=== PATIENT | female | born 1930 | race Caucasian/White ===

== ENCOUNTER 2018-02-12 11:12 | Emergency (ER) | payer MEDICARE, OTHER ==
--- NOTE | 2018-02-12 11:56 | EDM.PDOC ---
ED HPI GENERAL MEDICAL PROBLEM - General Stated Complaint: left shoulder pain Time Seen by Provider: 02/12/18 11:39 Source of Information: Reports: Patient History Limitations: Reports: No Limitations - History of Present Illness INITIAL COMMENTS - FREE TEXT/NARRATIVE: Patient presents via ambulance with left shoulder pain after falling in her garden. She thinks she fell directly on the shoulder. She denies LOC or neck pain. She didn't feel lightheaded but thinks she lost balance while holding the garden hoe. - Related Data Allergies Allergy/AdvReac Type Severity Reaction Status Date / Time alendronate sodium Allergy Nausea Verified 02/12/18 12:00 [From Fosamax] codeine Allergy Hallucinati Verified 02/12/18 12:00 ons fentanyl Allergy Hallucinati Verified 02/12/18 12:58 ons Home Meds: Home Meds Acetaminophen [Acetaminophen Extra Strength] 500 mg PO Q4H PRN 02/12/18 [History ] Acetaminophen/Diphenhydramine [Tylenol Pm Ex-Strength Caplet] 2 tab PO BEDTIME 02/12/18 [History] Aspirin [Adult Low Dose Aspirin EC] 81 mg PO ASDIRECTED 02/12/18 [History] Benazepril [Lotensin] 20 mg PO DAILY 02/12/18 [History] Cholecalciferol (Vitamin D3) [Vitamin D3] 400 unit PO DAILY 02/12/18 [History] Denosumab [Prolia] 60 mg .XX ASDIRECTED 02/12/18 [History] Non-Formulary Medication [NF Drug] 1 applic TOP ASDIRECTED PRN 02/12/18 [History ] amLODIPine Besylate [Amlodipine Besylate] 5 mg PO DAILY 02/12/18 [History] Review of Systems - Review of Systems Review Of Systems: See Below Constitutional: Denies: Chills, Fever Eyes: Reports: No Symptoms. Denies: Vision Change Ears: Reports: No Symptoms Nose: Reports: No Symptoms Mouth/Throat: Reports: No Symptoms. Denies: Muffled Voice Respiratory: Reports: No Symptoms. Denies: Shortness of Breath Cardiovascular: Reports: No Symptoms. Denies: Chest Pain, Syncope GI/Abdominal: Denies: Diarrhea, Nausea, Vomiting Genitourinary: Reports: No Symptoms Musculoskeletal: Reports: Shoulder Pain, Arm Pain. Denies: Neck Pain, Back Pain , Hand Pain, Leg Pain, Foot Pain Skin: Reports: No Symptoms. Denies: Cyanosis, Jaundice, Mottled, Pallor, Diaphoresis Neurological: Reports: No Symptoms. Denies: Confusion, Dizziness, Headache, Numbness, Seizure, Syncope, Tingling, Trouble Speaking, Weakness Psychiatric: Reports: No Symptoms. Denies: Confusion ED EXAM, GENERAL - Physical Exam Exam: See Below Exam Limited By: No Limitations General Appearance: Alert, WD/WN, No Apparent Distress Eye Exam: Bilateral Eye: EOMI, Normal Inspection, PERRL Ears: Normal External Exam, Hearing Loss (chronic, left) Nose: Normal Inspection, No Blood Throat/Mouth: Normal Inspection, Normal Lips, Normal Voice, No Airway Compromise Head: Atraumatic, Normocephalic Neck: Normal Inspection, Supple, Non-Tender, Full Range of Motion. No: Tender Lateral, Tender Midline Respiratory/Chest: No Respiratory Distress, Lungs Clear, Normal Breath Sounds, No Accessory Muscle Use, Chest Non-Tender Cardiovascular: Regular Rate, Rhythm, No Murmur, No Rub GI/Abdominal: Normal Bowel Sounds, Soft, Non-Tender, No Organomegaly, No Distention Back Exam: Normal Inspection. No: CVA Tenderness (L), CVA Tenderness (R) Extremities: No Pedal Edema, Normal Capillary Refill, Other (tender to palpation of left lateral clavicle, anterior shoulder and proximal humerus; any ROM of left upper arm is painful; subtle anterior fullness possible; elbow, forearm, wrist and hand are full ROM, pronation/supination without pain.) Neurological: Alert, Oriented, Normal Cognition, No Motor/Sensory Deficits Psychiatric: Normal Affect, Normal Mood Skin Exam: Warm, Dry, Intact, Normal Color, No Rash Course - Vital Signs Last Recorded V/S: Last Vital Signs Temp 97.3 F 02/12/18 11:49 Pulse 71 02/12/18 11:49 Resp 18 02/12/18 11:49 BP 135/82 02/12/18 11:49 Pulse Ox 97 02/12/18 11:49 - Orders/Labs/Meds Orders: Active Orders 24 hr Category Date Time Status Peripheral IV Care [RC] . DIRECTED Care 02/12/18 12:29 Active Sodium Chloride 0.9% [Syrex Flush] Med 02/12/18 12:29 Active 5 ml FLUSH Q8HR PRN Peripheral IV Insertion Adult [OM.PC] Routine Oth 02/12/18 12:29 Ordered Medication Orders Sodium Chloride (Syrex Flush) 5 ml FLUSH Q8HR PRN PRN Reason: Keep Vein Open Last Admin: 02/12/18 12:29 Dose: 5 ml Meds: Medications Generic Name Dose Route Start Last Admin Trade Name Freq PRN Reason Stop Dose Admin Sodium Chloride 5 ml 02/12/18 12:29 02/12/18 12:29 Syrex Flush FLUSH 5 ml Q8HR PRN Administration Keep Vein Open Discontinued Medications Generic Name Dose Route Start Last Admin Trade Name Freq PRN Reason Stop Dose Admin Morphine Sulfate 4 mg 02/12/18 12:17 02/12/18 12:28 Morphine IVPUSH 02/12/18 12:18 4 mg ONETIME ONE Administration Tramadol HCl 50 mg 02/12/18 13:45 02/12/18 13:50 Ultram PO 02/12/18 13:46 50 mg ONETIME ONE Administration - Re-Assessments/Exams Free Text/Narrative Re-Assessment/Exam: 02/12/18 13:20 Xrays show a left clavicle midshaft fracture that the radiologist feels is suspicious for pathologic fracture/lytic fracture. I discussed this with patient and with her PCP, PIPER Osullivan. After 4 mg of IV morphine was on board, I re-examined the shoulder; she still couldn't raise the left hand to her right shoulder but after going through a gentle "external-rotation" reduction technique I can passively place left hand over right shoulder and patient can hold it there without discomfort; I am confident there is no dislocation. A sling is placed and patient says pain is down to 3-4/10 from 10/ 10 initially. Patient's son and dtr-n-law are on their way here to pick her up and we will discuss discharge details. PCP, Nely feels she will be okay to go home as long as she isn't on strong pain medications that will make her more tired or disoriented. 02/12/18 14:33 Patient's son and dtr-n-law (a retired PA) came and we discussed the best options for care after discharge. They will stay with her for a few days or take her to their home for a few days, until she has demonstrated ability to safely care for herself. She can use the Tramadol and if well tolerated can continue on her own but the Hydrocodone I cautioned to use only if she has assistance nearby. Patient is stable and doing well in sling at discharge. Departure - Departure Time of Disposition: 14:31 Disposition: Home, Self-Care 01 Condition: Good Clinical Impression: Clavicle fracture, shaft Qualifiers: Encounter type: initial encounter Fracture type: closed Fracture alignment: displaced Laterality: left Qualified Code(s): S42.022A - Displaced fracture of shaft of left clavicle, initial encounter for closed fracture - Discharge Information Referrals: Nely Blnaco PA-C [Primary Care Provider] - Additional Instructions: 1. Wear sling for support and comfort. Tylenol vs Ibuprofen can be used for pain as needed also. 2. Take the Tramadol as directed for pain. If pain is more severe and family is there to assist you, you can use the Hydrocodone as directed. 3. Follow up at the clinic next week with another provider, since Nely won't likely be back in [facility], to recheck and discuss possible pathologic fracture. 4. Recheck sooner if worsening or if you are not doing well with it at home. - My Orders Last 24 Hours: My Active Orders 02/12/18 12:29 Peripheral IV Care [RC] . DIRECTED Sodium Chloride 0.9% [Syrex Flush] 5 ml FLUSH Q8HR PRN Peripheral IV Insertion Adult [OM.PC] Routine - Assessment/Plan Last 24 Hours: My Active Orders 02/12/18 12:29 Peripheral IV Care [RC] . DIRECTED Sodium Chloride 0.9% [Syrex Flush] 5 ml FLUSH Q8HR PRN Peripheral IV Insertion Adult [OM.PC] Routine
[2018-02-12 11:58] VITALS: BP 135/82
[2018-02-12] MEDS: Morphine 4 MG/ML Syringe IVPUSH ONE (12:28)
[2018-02-12] MEDS: Sodium Chloride 0.9% 5 ML Syringe FLUSH PRN (12:29)
[2018-02-12] MEDS: traMADol 50 MG Tab PO ONE (13:50)
[2018-02-12] MEDS: Ondansetron 4 MG Tab.DIS PO ONE (14:42)
== END 2018-02-12 14:47 | disposition home or self-care (01) ==
LOC: KA.ED 11:12
DX: S42.022A Displaced fracture of shaft of left clavicle, initial encounter for closed fracture (principal); Z79.82 Long term (current) use of aspirin; Z79.899 Other long term (current) drug therapy; Z88.5 Allergy status to narcotic agent; Z88.8 Allergy status to other drugs, medicaments and biological substances; W19.XXXA Unspecified fall, initial encounter; Y92.096 Garden or yard of other non-institutional residence as the place of occurrence of the external cause
CPT/HCPCS: 73000-LT; 73030-LT; 96374; 99283; 99284; A9270-GY; J2270

== ENCOUNTER 2019-10-12 08:25 | Emergency (ER) | payer MEDICARE, OTHER ==
--- NOTE | 2019-10-12 09:28 | CR ---
[id number] RAD/RAD Lumbar Spine 2-3V EXAM: AP AND LATERAL LUMBAR SPINE. INDICATION: Pain. COMPARISON: No previous similar exam is available for comparison. FINDINGS: No acute fracture or subluxation is seen. No evidence of compression deformity. The pedicles are intact. Degenerative changes of the lumbar spine including loss of disc space height at L5-S1. Additionally there is multilevel endplate osteophytosis and facet arthropathy. Mild scoliotic curvature of the thoracolumbar spine. Extensive vascular calcifications. 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 Moderate degenerative changes of the right hip. IMPRESSION: DEGENERATIVE CHANGES OF THE LUMBAR SPINE MOST PRONOUNCED AT L5-S1. Gaston Wilkerson DO 10/12/19 0927 Thank you for allowing us to participate in the care of your patient.
[2019-10-12] MEDS ORDERED: Ketorolac 30 MG/ML SDV IM ONE (09:32)
--- NOTE | 2019-10-12 10:19 | EDM.PDOC ---
ED HPI GENERAL MEDICAL PROBLEM - General Chief Complaint: General Stated Complaint: HIP PAIN Time Seen by Provider: 10/12/19 09:14 Source of Information: Reports: Patient History Limitations: Reports: No Limitations - History of Present Illness INITIAL COMMENTS - FREE TEXT/NARRATIVE: 89 YO WF presents to ER with complaints of worsening right hip and knee pain. Pt was seen in clinic for similar twice over the last 2 weeks. Pt had xrays of both the right hip and right knee which revealed progressive DJD of right hip. Pt has a right TKA which appears to be aligned and NAD. Pt came to ER for pain that is uncontrolled with Tylenol/Ibuprofen. Pt states her pain is worse with initial joint movements and improves with activities like walking. Pt is scheduled for bursa injection 10/15/2019 in clinic. Pt denies back pain, no dysuria, no fever/chills. Pt denies any redness or swelling or recent injuries to either hip/knee. Duration: Chronic, Getting Worse, Recurring Location: Reports: Lower Extremity, Right Quality: Reports: Ache Severity: Moderate Improves with: Reports: Movement Associated Symptoms: Reports: No Other Symptoms Treatments ROUGE MIXER: Reports: Acetaminophen, NSAIDS Right Knee Pain Score (Numeric/FACES): 8 - Related Data Allergies Allergy/AdvReac Type Severity Reaction Status Date / Time alendronate sodium Allergy Nausea Verified 10/12/19 08:50 [From Fosamax] codeine Allergy Hallucinati Verified 10/12/19 08:50 ons fentanyl Allergy Hallucinati Verified 10/12/19 08:50 ons Home Meds: Home Meds Acetaminophen [Acetaminophen Extra Strength] 500 mg PO Q4H PRN 02/12/18 [History ] Acetaminophen/Diphenhydramine [Tylenol Pm Ex-Strength Caplet] 1 tab PO BEDTIME 02/12/18 [History] Aspirin [Adult Low Dose Aspirin EC] 81 mg PO Q48H 02/12/18 [History] Benazepril [Lotensin] 20 mg PO DAILY 02/12/18 [History] Cholecalciferol (Vitamin D3) [Vitamin D3] 400 unit PO DAILY 02/12/18 [History] Denosumab [Prolia] 60 mg .XX ASDIRECTED 02/12/18 [History] Non-Formulary Medication [NF Drug] 1 applic TOP ASDIRECTED PRN 02/12/18 [History ] amLODIPine Besylate [Amlodipine Besylate] 5 mg PO DAILY 02/12/18 [History] Past Medical History HEENT History: Reports: Hard of Hearing, Impaired Vision Cardiovascular History: Reports: Hypertension 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: Musculoskeletal History: Reports: Arthritis, Osteoarthritis, Osteoporosis - Infectious Disease History Infectious Disease History: Reports: Chicken Pox, Measles, Mumps - Past Surgical History Cardiovascular Surgical History: Reports: None Musculoskeletal Surgical History: Reports: None Social & Family History - Family History Family Medical History: Noncontributory - Tobacco Use Smoking Status *Q: Never Smoker Second Hand Smoke Exposure: Yes - Caffeine Use Caffeine Use: Reports: Coffee, Tea - Recreational Drug Use Recreational Drug Use: No ED ROS GENERAL - Review of Systems Review Of Systems: See Below Constitutional: Reports: No Symptoms HEENT: Reports: No Symptoms Respiratory: Reports: No Symptoms Cardiovascular: Reports: No Symptoms Endocrine: Reports: No Symptoms GI/Abdominal: Reports: No Symptoms : Reports: No Symptoms Musculoskeletal: Reports: Joint Pain Skin: Reports: No Symptoms Neurological: Reports: No Symptoms Psychiatric: Reports: No Symptoms Hematologic/Lymphatic: Reports: No Symptoms Immunologic: Reports: No Symptoms ED EXAM, GENERAL - Physical Exam Exam: See Below Exam Limited By: No Limitations General Appearance: Alert, WD/WN, No Apparent Distress Head: Atraumatic, Normocephalic Neck: Normal Inspection, Supple, Non-Tender, Full Range of Motion Respiratory/Chest: No Respiratory Distress, Lungs Clear, Normal Breath Sounds, No Accessory Muscle Use, Chest Non-Tender Cardiovascular: Normal Peripheral Pulses, Regular Rate, Rhythm, No Edema, No Gallop, No JVD, No Murmur, No Rub GI/Abdominal: Normal Bowel Sounds, Soft, Non-Tender, No Organomegaly, No Distention, No Abnormal Bruit, No Mass Back Exam: Normal Inspection, Full Range of Motion, NT Extremities: Normal Range of Motion, No Pedal Edema, Normal Capillary Refill ( pain with AROM of right hip with radiation to right knee), Other. No: Joint Swelling, Limited Range of Motion Neurological: Alert, Oriented, CN II-XII Intact, Normal Cognition, Normal Gait, Normal Reflexes, No Motor/Sensory Deficits Psychiatric: Normal Affect, Normal Mood Skin Exam: Warm, Dry, Intact, Normal Color, No Rash Course - Vital Signs Last Recorded V/S: Last Vital Signs Temp 36.1 C 10/12/19 08:42 Pulse 67 10/12/19 08:42 Resp 20 10/12/19 08:42 BP 155/76 H 10/12/19 08:42 Pulse Ox 98 10/12/19 08:42 - Orders/Labs/Meds Orders: lumbar spine- DJD; scoliosis Meds: Medications Discontinued Medications Generic Name Dose Route Start Last Admin Trade Name Isabel PRN Reason Stop Dose Admin Ketorolac Tromethamine 30 mg 10/12/19 09:32 10/12/19 09:42 Toradol IM 10/12/19 09:33 30 mg ONETIME ONE Administration - Radiology Interpretation Free Text/Narrative:: discussed with David CRESPO who assisted in scheduling joint injection in clinic today. Pt agreeable to procedure today. Instructed to return to ER for worsening symptoms Departure - Departure Time of Disposition: 10:32 Disposition: Home, Self-Care 01 Condition: Good Clinical Impression: Osteoarthritis Qualifiers: Osteoarthritis location: hip Osteoarthritis type: unspecified Laterality: right Qualified Code(s): M16.11 - Unilateral primary osteoarthritis, right hip - Discharge Information Referrals: Saleem Rucker MD [Physician] - Additional Instructions: 1. Discharge home 2. sent to [facility] for joint injection to right hip today 12:30 3. return to ER for worsening symptoms Sepsis Event Note - Evaluation Sepsis Screening Result: No Definite Risk - Focused Exam Vital Signs: Vital Signs Temp Pulse Resp BP Pulse Ox 10/12/19 08:42 36.1 C 67 20 155/76 H 98 Date Exam was Performed: 10/12/19 Time Exam was Performed: 10:13 - Assessment/Plan Assessment:: 1. DJD of Right Hip- degenerative osteoarthritis Plan: 1. Discharge home 2. sent to [facility] for joint injection to right hip today 12:30 3. return to ER for worsening symptoms
== END 2019-10-12 12:00 | disposition home or self-care (01) ==
LOC: KA.ED 08:25
DX: M16.11 Unilateral primary osteoarthritis, right hip (principal); I10 Essential (primary) hypertension; M81.0 Age-related osteoporosis without current pathological fracture; Z88.8 Allergy status to other drugs, medicaments and biological substances; Z88.5 Allergy status to narcotic agent; Z79.899 Other long term (current) drug therapy; Z79.82 Long term (current) use of aspirin; Z96.651 Presence of right artificial knee joint
CPT/HCPCS: 72100; 96372; 99283; 99283-25; J1885